=== PATIENT | male | born 1985 | race African-American/Black ===

== ENCOUNTER 2021-02-14 06:26 | Emergency (ER) | payer SELFPAY ==
[~2021-02-14] VITALS: Ht 180.3 cm; Wt 72.0 kg
[2021-02-14] MEDS ORDERED: SODIUM CHLORIDE 0.9% 1,000 ML IV ONE (07:30)
[2021-02-14 08:29] LABS: CHLORIDE 100 mEq/L (98-107)
[2021-02-14 08:33] LABS: ETHANOL BLOOD < 10 mg/dL
[2021-02-14 08:34] LABS: BASOPHILS % 0.5 % (0.0-2.0); EOSINOPHILS % 4.1 % (0.0-5.0); HEMATOCRIT. 39.1 % (42.0-52.0); HEMOGLOBIN. 12.5 g/dL (14.0-18.0); LYMPHOCYTES % 21.2 % (20.0-50.0); MEAN CORPUSCULAR HEMOGLOBIN 22.5 pg (28.0-32.0); MEAN CORPUSCULAR VOLUME 70.1 fL (80.0-94.0); MEAN PLATELET VOLUME 8.5 fl (7.4-10.4); MONOCYTES % 9.1 % (2.0-8.0); NEUTROPHILS % 65.1 % (40.0-76.0); PLATELET 268 x1000/uL (130-400); RED BLOOD CELL COUNT 5.58 mill/uL (4.7-6.1)
[2021-02-14 21:13] LABS: CLARITY URINE CLEAR (CLEAR); COLOR URINE YELLOW (YELLOW); KETONES URINE 1+ (NEGATIVE); LEUKOCYTE ESTERASE URINE NEGATIVE (NEGATIVE); NITRITE URINE NEGATIVE (NEGATIVE); OCCULT BLOOD URINE NEGATIVE (NEGATIVE); PROTEIN URINE NEGATIVE (NEGATIVE); SPECIFIC GRAVITY URINE 1.019 (1.005-1.030)
[2021-02-14 21:23] LABS: *AMPHETAMINES SCREEN URINE NEGATIVE (NEGATIVE); CANNABINOID URINE SCREEN NEGATIVE (NEGATIVE); PHENCYCLIDINE URINE SCREEN NEGATIVE (NEGATIVE)
[2021-02-14 21:24] LABS: *BARBITURATES SCREEN URINE NEGATIVE (NEGATIVE); *BENZODIAZEPINES SCREEN URINE NEGATIVE (NEGATIVE); *COCAINE SCREEN URINE NEGATIVE (NEGATIVE); METHADONE URINE SCREEN NEGATIVE (NEGATIVE); OPIATES URINE SCREEN NEGATIVE (NEGATIVE)
[2021-02-14] MEDS ORDERED: OLANZAPINE 10MG TABLET PO STA (23:17)
[2021-02-15] MEDS: OLANZAPINE 10MG TABLET PO SCH (22:32)
[2021-02-16] MEDS: OLANZAPINE 10MG TABLET PO SCH (21:00)
[2021-02-17] MEDS: OLANZAPINE 10MG TABLET PO SCH (20:48)
[2021-02-19] MEDS: OLANZAPINE 10MG TABLET PO SCH (02:02)
[2021-02-19 19:10] VITALS: BP 126/72
== END 2021-02-19 19:13 ==
LOC: ER 06:36 → EDBD 06:36 → ER 02-19 19:13
DX: F23 Brief psychotic disorder (principal); R41.82 Altered mental status, unspecified; Z20.822 Contact with and (suspected) exposure to COVID-19; F19.10 Other psychoactive substance abuse, uncomplicated; E86.0 Dehydration; Z59.0 Homelessness
CPT/HCPCS: 36415; 70450; 71045; 80053; 80305; 80307; 80320; 80329; 81003; 82140; 85025; 87426; 93005; 99285; J7030; Z7610; G0480